=== PATIENT | female | born 1935 | race Caucasian/White ===

== ENCOUNTER 2024-02-02 14:53 | Emergency (ER) | payer MEDICARE, SELFPAY ==
[2024-02-02] VITALS (8 sets, daily range): BP systolic 105–189; BP diastolic 52–80; PULSE 61–82; RESP 16–22; TEMP 36.4–36.7; O2SAT 91–96; BMI 28.9
--- NOTE | ~2024-02-02 | CT_ITS ---
EXAMINATION: CT HEAD WITHOUT CONTRAST CT CERVICAL SPINE WITHOUT CONTRAST CLINICAL INFORMATION: Weakness, fall. COMPARISON: None TECHNIQUE: Contiguous axial imaging was performed from the skull base to vertex without intravenous administration of contrast. Contiguous axial imaging was performed from the upper chest through the skull base without intravenous administration of contrast. Coronal and sagittal reformats were obtained at the acquisition workstation. This CT examination was performed using dose optimization techniques as appropriate, variously including the following: *Automated exposure control *Adjustment of mA and/or kV according to patient size (this includes techniques or standardized protocols for targeted exams where dose is matched to indication/reason for exam; i.e. extremities or head) *Use of iterative reconstruction technique DLP: 667 and 270 mGy-cm FINDINGS: Head: There is no evidence of acute intracranial hemorrhage or edematous territorial infarction. Scattered hypoattenuation in the periventricular and deep white matter are consistent with moderate microangiopathy. Alfaro-white matter differentiation is preserved. Proportional prominence of the ventricles and sulcal spaces. No evidence for obstructive hydrocephalus. No abnormal mass effect or midline shift. No extra-axial fluid collections. Hyperostosis frontalis interna. Subjective increased density of the bony calvarium. No acute soft tissue findings. The mastoid air cells and paranasal sinuses are clear. Cervical Spine: The atlantooccipital and atlantoaxial articulations remain well aligned. Grade 1 anterolisthesis of C2 on C3 and C3 on C4, most likely degenerative in nature. No evidence of acute compression deformity. Prominent multilevel anterior osteophytes. Moderate multilevel intervertebral disc height loss uncovertebral hypertrophy leading to various degrees of neural foraminal encroachment. Evaluation of the central spinal canal is limited in the absence of IV contrast. No prevertebral soft tissue thickening. Asymmetric, enlarged and heterogeneous left lobe of the thyroid gland with a 1 cm hyperattenuating nodule posteriorly. Incidentally noted retropharyngeal left common carotid artery. Remaining cervical soft tissues are normal in appearance. The lung apices demonstrate no abnormalities. CT/CT cervical spine wo IV con IMPRESSION: 1. No acute intracranial pathology. 2. 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 3. No acute cervical spinal fractures or malalignment. 4. Moderate multilevel cervical spondylosis leading to various degrees of neural foraminal encroachment. 5. Subjective increased density of the bony calvarium, correlate with medical history and consider further evaluation with outpatient bone scan. 6. Asymmetric, enlarged and heterogeneous left lobe of the thyroid gland with a 1 cm hyperattenuating nodule. Based on the recommendations of the ACR Incidental Thyroid Findings Committee (JACR 2015 Dec; 12(2):143-50), further evaluation by thyroid ultrasound is recommended for a heterogeneously enlarged thyroid gland in patients that do not have limited life expectancy or significant co-morbidities, unless clinically warranted.
--- NOTE | 2024-02-02 16:10 | ED.GENADULT ---
HPI - General Adult General Chief complaint: General Medical Stated complaint: FEELS FAINT AND SHAKEY X1 WK FROM SNF PER EMS Time Seen by Provider: 02/02/24 14:57 Source: patient and RN notes reviewed Mode of arrival: ambulatory Limitations: no limitations History of Present Illness HPI narrative: This is a 88-year-old female, with a history of Parkinson's, hypertension, hyperlipidemia, and recent diagnosis of pulmonary embolism on Eliquis (diagnosed this past week), presenting to the emergency department with general weakness for the last several months, worsening over this past week. Patient states that he has been seen by [facility] multiple times this past week for the same complaint however she states that ?they have not given me any answers?. I inquired further, she states that she was diagnosed with a pulmonary embolism was started on Eliquis several days ago. She has been taking the prescribed Eliquis and was told to follow-up with her primary care physician outpatient which she has not done. Patient states that she is getting frustrated as she has had increased trouble walking due to weakness. She denies any headache, dizziness, blurred vision, fevers, chills, sore throat, congestion, cough, chest pain. She endorses shortness of breath especially when she is lying down flat, which has been present for many months however worsened over the last week. She also endorses increased swelling in her lower extremities. She reports slight warmness with urination, otherwise denies any dysuria, urinary frequency, urgency. She states that she typically uses a walker. She does admit that she had a fall 2 days ago. She states that she was attempting to get out of her chair and she slid down. She denies hitting her head or loss of consciousness. No other complaints or concerns at this time. complaint: Weakness Onset (ago): month(s) Radiation: non-radiation Pain Consistency: constant Relieving factors: none Exacerbating factors: none Associated symptoms: denies other symptoms Treatments prior to arrival: none Related Data Home Medications Medication Instructions Recorded Confirmed amlodipine 5 mg tablet 5 mg PO DAILY 02/02/24 02/02/24 ascorbic acid (vitamin C) 500 mg 500 mg PO DAILY 02/02/24 02/02/24 tablet carbidopa 25 mg-levodopa 100 mg 2.5 tab PO TID@0900,1400,2230 02/02/24 02/02/24 tablet carbidopa 25 mg-levodopa 100 mg 3 tab PO BID@1200,1800 02/02/24 02/02/24 tablet cholecalciferol (vitamin D3) 25 25 mcg PO DAILY 02/02/24 02/02/24 mcg (1,000 unit) tablet coenzyme Q10 100 mg capsule (Co 200 mg PO BID 02/02/24 02/02/24 Q-10) docusate sodium 100 mg capsule 100 mg PO BID 02/02/24 02/02/24 furosemide 20 mg tablet 20 mg PO DAILY 02/02/24 02/02/24 levothyroxine 75 mcg tablet 75 mcg PO DAILY 02/02/24 02/02/24 lisinopril 30 mg tablet 30 mg PO DAILY 02/02/24 02/02/24 magnesium oxide 400 mg PO DAILY 02/02/24 02/02/24 melatonin 3 mg tablet 6 mg PO BEDTIME 02/02/24 02/02/24 multivitamin 1 tab PO DAILY 02/02/24 02/02/24 trazodone 50 mg tablet 50 mg PO BEDTIME 02/02/24 02/02/24 Allergies Allergy/AdvReac Type Severity Reaction Status Date / Time Unable to Assess Allergy Unverified 02/02/24 16:36 Review of Systems Review of Systems: Yes all other systems are reviewed and are negative Constitutional: Constitutional: Reports as per [facility] Social History Social History Smoked in Last 30 Days: No Advance Directives: Yes Advance Directives Information Provided: Yes Advance Directives on File: No Physical Exam ED Vital Signs: Vital Signs - 24 hr 02/02/24 15:04 02/02/24 15:29 02/02/24 17:48 Temperature 98.1 F 97.8 F 97.9 F Pulse Rate 82 76 73 Respiratory Rate 16 20 22 H Blood Pressure 126/63 105/52 L 157/69 H Pulse Oximetry 94 91 L 96 Oxygen Delivery Method Room Air Room Air Room Air 02/02/24 17:50 02/02/24 17:51 02/02/24 17:54 Temperature Pulse Rate 61 65 72 Respiratory Rate Blood Pressure 149/67 H 144/67 H 158/62 H Pulse Oximetry Oxygen Delivery Method 02/02/24 19:39 02/02/24 23:58 Temperature 97.6 F 97.9 F Pulse Rate 79 67 Respiratory Rate 22 H 17 Blood Pressure 189/80 H 166/72 H Pulse Oximetry 95 93 Oxygen Delivery Method Room Air Room Air BMI result Body Mass Index 28.9 Const General: cooperative, comfortable and no acute distress Orientation/consciousness: patient oriented x3 Limitations: no limitations HENMT Head: Yes normal to inspection, Yes normocephalic and Yes atraumatic Ears: hearing grossly normal bilaterally General nose exam: Normal external nose present Face and sinus: Yes normal facial exam Mouth: Normal oral and palatal mucosa present, oropharynx normal and moist mucous membranes Throat: Yes posterior oropharynx normal Eyes General: appearance normal, both eyes and all related structures Eyelids: Yes eyelids normal Conjunctivae: conjunctivae normal Sclerae: sclerae normal Pupils: Equal, round and reactive pupils present EOM: EOMs intact bilaterally Neck Neck: Yes normal visual inspection, Yes full ROM and Yes no lymphadenopathy Lymphatic: no lymphadenopathy noted Chest Chest palpation & inspection: normal inspection of the chest Resp Effort & Inspection: normal respiratory effort and able to speak in complete sentences Auscultation: clear to auscultation bilaterally, no crackles, no rales, no rhonchi and no wheezes Cardio Rate: regular rate Rhythm: regular rhythm Heart sounds: S1 normal heart sound present and S2 normal heart sound present GI Other: Abdomen is soft and nontender Inspection: Yes normal to inspection Skin General skin exam: no rashes or lesions noted Trauma: no lacerations or abrasions Wounds: no wounds 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 General: patient oriented x3 and moves all extremities Cranial nerves: Yes CN's II-XII intact bilaterally and Yes Equal, round and reactive pupils present Cognition (Neuro): normal cognition Motor exam (neuro): 5/5 motor strength present throughout and Pronator motor function not present Coordination: [id number] test normal Romberg Test: Negative Extrem Other: No lower extremity swelling noted. No pedal edema noted. Strength 5/5 in lower extremities. General: Yes normal to inspection Right upper extremity: normal to inspection Left upper extremity: normal to inspection Right lower extremity: normal to inspection Left lower extremity: normal to inspection Course Reevaluation(s) Reevaluation #1: She has not orthostatic. Patient has no leukocytosis, H&H within normal limits. Chemistry within normal limits. Urine does not appear to be infected. Viral swabs are negative. Patient requesting her levodopa carbidopa. She is agreeable for CT scan of head and neck Time: 19:25 Reevaluation #2: CT scan of the head and neck reveal no acute intracranial pathology, there also no acute cervical spinal fractures or malalignment. There is moderate multilevel cervical spondylosis leading to varus degrees of neural foraminal encroachment. There is an asymmetric enlarged in heterogeneous left lobe of the thyroid gland with a 1 cm hyperattenuating nodule. I discussed these findings with patient. She still refuses to have a chest x-ray. Patient is agreeable to see PT and case management in the morning. Physician observation initiated, pending PT Case Management Time: 23:07 Medications Administered Generic Name Dose Route Start Last Admin Trade Name Freq PRN Reason Stop Dose Admin Apixaban 5 mg 02/02/24 22:55 02/02/24 23:47 Apixaban 5 Mg Tablet PO 5 mg BID JASON Administration Carbidopa/Levodopa 2.5 tab 02/02/24 22:30 02/02/24 22:18 Carbidopa/Levodopa 25/100 Tablet PO 2.5 tab TID@0900,1400,2230 JASON Administration Melatonin 6 mg 02/02/24 22:15 02/02/24 22:18 Melatonin 3 Mg Tablet PO 6 mg BEDTIME JASON Administration Trazodone HCl 50 mg 02/02/24 22:15 02/02/24 22:18 Trazodone Hcl 50 Mg Tablet PO 50 mg BEDTIME JASON Administration Discontinued Medications Generic Name Dose Route Start Last Admin Trade Name Freq PRN Reason Stop Dose Admin Carbidopa/Levodopa 1 tab 02/02/24 19:16 02/02/24 19:41 Carbidopa/Levodopa 25/100 Tablet PO 02/02/24 19:17 1 tab ONCE ONE Administration Medical Decision Making Medical Decision Making [facility] Narrative: This is a 88-year-old female, with a history of Parkinson's, recent diagnosis of pulmonary embolism started on Eliquis several days ago, hypertension, and hyperlipidemia, presenting to the emergency department from the [facility], with complaints of weakness for the last several months, worsening over the last week. She also endorsing shortness of breath upon lying down, warmness sensation with urination, and increased lower extremity swelling. She also had a mechanical fall 2 days ago, denies head strike or LOC. Differential diagnoses include dehydration, electrolyte abnormality, ACS, CVA, ICH, orthostatic hypotension, failure to thrive, UTI, pneumonia. Plan: Will attempt to obtain records from [facility], labs, EKG, CT head/neck. Patient refusing chest x-ray as she ?has had too many over the course of this last week. Patient also refusing CT head and neck. I explained to her that she is currently on a blood thinner and this increases her risk for intracranial process. She has no neurologic focal deficits on examination however given that she is on anticoagulants with 2 mechanical falls this past week, I would like to obtain a CT head and neck to rule out any sort of intracranial process. She is completely neurologically intact and can make her own medical decisions as she is competent in his aware of all the risks associated with not performing these diagnostic images. I explained to her that because she has had multiple chest x-rays as well as CT scans that were normal in the past does not indicate that she will have a normal chest x-ray or CT head and neck today. She understands the risks of intracranial bleeds, including paralysis and . She still adamantly refuses to do these tests. Differential Diagnosis Differential Diagnoses: The differential diagnosis associated with the presentation includes See above Admission/Observation Consideration of admission/observation: Escalation of care including admission/observation considered Escalation of care including admission/observation considered however given workup today not warranted at this time. Lab Data MDM Lab Attestation statement: I reviewed the patient's lab results. A leukocytosis, chemistry without any electrolyte derangements. Negative troponin. BNP 94. Lipase within normal limits, urine does not appear to be infected. Negative flu, RSV, and COVID 02/02/24 17:11 02/02/24 17:11 Labs: Lab Results 02/02/24 Range/Units 17:11 WBC 9.0 (4.8-10.8) X10*3/uL RBC 4.36 (4.20-5.50) X10*6/uL Hgb 13.5 (12.0-16.0) g/dl Hct 40.3 (37.0-47.0) % MCV 92.4 (80.0-98.0) fL MCH 31.0 (27.0-33.0) pg MCHC 33.5 (31.0-35.0) g/dl RDW 14.5 (11.0-16.0) % Plt Count 310 (160-400) X10*3/uL MPV 8.6 L (9.4-12.3) fL Immature Gran % (Auto) 0.2 (0.0-0.4) % Neut % (Auto) 57.5 (45-73) % Lymph % (Auto) 34.1 (20-40) % [place] % (Auto) 6.1 (2-11) % Eos % (Auto) 1.7 (0-4) % Baso % (Auto) 0.4 (0-2) % Lymph # (Auto) 3.1 (1.2-4.9) X10*3/uL [place] # (Auto) 0.6 (0.1-1.2) X10*3/uL Eos # (Auto) 0.2 (0.0-0.4) X10*3/uL Baso # (Auto) 0.0 (0.0-0.2) X10*3/uL Abs Immat Gran (auto) 0.02 (0.00-0.03) X10*3/uL Absolute Neuts (auto) 5.2 (2.0-8.3) x10*3/uL Absolute Nucleated RBC 0.000 (0.0-0.012) X10*3/uL Nucleated RBC % (auto) 0.0 (0.0-0.2) /100WBC PT 12.8 (11.1-13.3) SEC INR 1.1 (0.9-1.1) APTT 24.5 L (26.0-36.8) SEC Sodium 138 (135-145) mmol/L Potassium 4.1 (3.3-5.1) mmol/L Chloride 106 (96-108) mmol/L Carbon Dioxide 26 (22-29) mmol/L Anion Gap 10 L (12-20) BUN 16 (9-16) mg/dL Creatinine 0.60 (0.5-1.4) mg/dL Estim Creat Clear Calc 72.3 Estimated GFR > 60 Random Glucose 105 (60-115) mg/dL Calcium 9.0 (8.4-10.2) mg/dL Magnesium 2.2 (1.6-2.6) mg/dL Total Bilirubin 0.5 (0.0-1.0) mg/dL Direct Bilirubin 0.1 (0.0-0.5) mg/dL AST 10 (5-31) U/L ALT < 5 (0-31) U/L Alkaline Phosphatase 80 (39-117) U/L Troponin I High Sens 3.2 (<3.5-17.0) ng/L B-Natriuretic Peptide 94 (<100) pg/mL Total Protein 6.1 L (6.5-8.0) g/dL Albumin 3.6 (3.5-5.0) g/dL Lipase 13 (8-78) U/L Urine Color Yellow Urine Appearance Cloudy Urine pH 7.5 (5.0-9.0) Ur Specific [place] 1.010 (1.005-1.025) Urine Protein Negative (Neg-Trace) mg/dL Urine Glucose (UA) Negative (Negative) mg/dL Urine Ketones Negative (Negative) mg/dL Urine Blood Negative (Negative) Urine Nitrite Negative (Negative) Ur Leukocyte Esterase Negative (Negative) Influenza Type A (PCR) NEGATIVE (Negative) Influenza Type B (PCR) NEGATIVE (Negative) RSV RNA Qual (PCR) NEGATIVE (Negative) SARS-CoV-2 RNA (RT-PCR) NEGATIVE (Negative) Independent Interpretation I performed an independent interpretation of an: EKG Interpretation: EKG sinus bradycardic at a ventricular rate of 59 beats per minute, NH interval 184. No ST elevation or depression. Radiology Impression Discussion of test interpretation with radiology: I have reviewed the radiologist's reading. Radiologist Impression: EXAMINATION: CT HEAD WITHOUT CONTRAST CT CERVICAL SPINE WITHOUT CONTRAST CLINICAL INFORMATION: Weakness, fall. COMPARISON: None TECHNIQUE: Contiguous axial imaging was performed from the skull base to vertex without intravenous administration of contrast. Contiguous axial imaging was performed from the upper chest through the skull base without intravenous administration of contrast. Coronal and sagittal reformats were obtained at the acquisition workstation. This CT examination was performed using dose optimization techniques as appropriate, variously including the following: *Automated exposure control *Adjustment of mA and/or kV according to patient size (this includes techniques or standardized protocols for targeted exams where dose is matched to indication/reason for exam; i.e. extremities or head) *Use of iterative reconstruction technique DLP: 667 and 270 mGy-cm FINDINGS: Head: There is no evidence of acute intracranial hemorrhage or edematous territorial infarction. Scattered hypoattenuation in the periventricular and deep white matter are consistent with moderate microangiopathy. Alfaro-white matter differentiation is preserved. Proportional prominence of the ventricles and sulcal spaces. No evidence for obstructive hydrocephalus. No abnormal mass effect or midline shift. No extra-axial fluid collections. Hyperostosis frontalis interna. Subjective increased density of the bony calvarium. No acute soft tissue findings. The mastoid air cells and paranasal sinuses are clear. Cervical Spine: The atlantooccipital and atlantoaxial articulations remain well aligned. Grade 1 anterolisthesis of C2 on C3 and C3 on C4, most likely degenerative in nature. No evidence of acute compression deformity. Prominent multilevel anterior osteophytes. Moderate multilevel intervertebral disc height loss uncovertebral hypertrophy leading to various degrees of neural foraminal encroachment. Evaluation of the central spinal canal is limited in the absence of IV contrast. No prevertebral soft tissue thickening. Asymmetric, enlarged and heterogeneous left lobe of the thyroid gland with a 1 cm hyperattenuating nodule posteriorly. Incidentally noted retropharyngeal left common carotid artery. Remaining cervical soft tissues are normal in appearance. The lung apices demonstrate no abnormalities. CT/CT head/brain wo IV con IMPRESSION: 1. No acute intracranial pathology. 2. 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 3. No acute cervical spinal fractures or malalignment. 4. Moderate multilevel cervical spondylosis leading to various degrees of neural foraminal encroachment. 5. Subjective increased density of the bony calvarium, correlate with medical history and consider further evaluation with outpatient bone scan. 6. Asymmetric, enlarged and heterogeneous left lobe of the thyroid gland with a 1 cm hyperattenuating nodule. Based on the recommendations of the ACR Incidental Thyroid Findings Committee (JACR 2015 Dec; 12(2):143-50), further evaluation by thyroid ultrasound is recommended for a heterogeneously enlarged thyroid gland in patients that do not have limited life expectancy or significant co-morbidities, unless clinically warranted. Dictated By: Maya Vidales Discharge Plan Discharge Clinical Impression: Weakness Patient Disposition: Still a Patient Prescriptions: No Action trazodone 50 mg tablet 50 mg PO BEDTIME amlodipine 5 mg tablet 5 mg PO DAILY levothyroxine 75 mcg tablet 75 mcg PO DAILY furosemide 20 mg tablet 20 mg PO DAILY carbidopa-levodopa 25-100 mg tablet 3 tab PO BID@1200,1800 multivitamin Tablet 1 tab PO DAILY melatonin 3 mg Tablet 6 mg PO BEDTIME ascorbic acid (vitamin C) 500 mg Tablet 500 mg PO DAILY docusate sodium 100 mg Capsule 100 mg PO BID carbidopa-levodopa 25-100 mg tablet 2.5 tab PO TID@0900,1400,2230 coenzyme Q10 [Co Q-10] 100 mg Capsule 200 mg PO BID cholecalciferol (vitamin D3) 25 mcg (1,000 unit) Tablet 25 mcg PO DAILY magnesium oxide 400 mg magnesium Tablet 400 mg PO DAILY lisinopril 30 mg tablet 30 mg PO DAILY
--- NOTE | 2024-02-02 16:37 | ECG_ITS ---
Test Reason : WEAKNESS Blood Pressure : / mmHG Vent. Rate : 059 BPM Atrial Rate : 059 BPM P-R Int : 184 ms QRS Dur : 078 ms QT Int : 428 ms P-R-T Axes : 048 003 019 degrees QTc Int : 423 ms Sinus bradycardia Otherwise normal ECG No previous ECGs available Referred By: Irlanda Null Electronically Signed By:VITA MCBRIDE MD
[2024-02-02 17:19] LABS: MANUAL DIFF FLAG NO
[2024-02-02 17:23] LABS: Basophils Percent Auto 0.4 % (0-2); Eosinophils Absolute Auto 0.2 X10*3/uL (0.0-0.4); Eosinophils Percent Auto 1.7 % (0-4); Hematocrit 40.3 % (37.0-47.0); Hemoglobin 13.5 g/dl (12.0-16.0); Imm Gran Abs Auto 0.02 X10*3/uL (0.00-0.03); Imm Gran Pct Auto 0.2 % (0.0-0.4); Lymphocytes Absolute Auto 3.1 X10*3/uL (1.2-4.9); Lymphocytes Percent Auto 34.1 % (20-40); Mean Corpuscular HGB Conc 33.5 g/dl (31.0-35.0); Mean Corpuscular Volume 92.4 fL (80.0-98.0); Mean Platelet Volume 8.6 fL (9.4-12.3); Monocytes Absolute Auto 0.6 X10*3/uL (0.1-1.2); Monocytes Percent Auto 6.1 % (2-11); Neutrophils Absolute Auto 5.2 x10*3/uL (2.0-8.3); Neutrophils Percent Auto 57.5 % (45-73); Platelet Count 310 X10*3/uL (160-400); Red Blood Count 4.36 X10*6/uL (4.20-5.50); Red Cell Distribution Width 14.5 % (11.0-16.0)
[2024-02-02 17:25] LABS: Appearance Urine Cloudy; Color Urine Yellow; Glucose Urine UA Negative (Negative); Leukocyte Esterase Urine Negative (Negative); Nitrite Urine Negative (Negative); PH 7.5 (5.0-9.0); Urine Blood Negative (Negative); Urine Ketones Negative (Negative); Urine Protein Negative (Neg-Trace)
[2024-02-02 17:30] LABS: INTERNATIONAL NORM RATIO 1.1 (0.9-1.1); Prothrombin Time 12.8 SEC (11.1-13.3)
[2024-02-02 17:33] LABS: Partial Thromboplastin Time 24.5 SEC (26.0-36.8)
[2024-02-02 17:42] LABS: Alanine Aminotransferase < 5 U/L (0-31); Albumin Level 3.6 g/dL (3.5-5.0); Alkaline Phosphatase 80 U/L (39-117); Anion Gap 10 (12-20); Aspartate Amino Transferase 10 U/L (5-31); Bilirubin Direct 0.1 mg/dL (0.0-0.5); Bilirubin Total 0.5 mg/dL (0.0-1.0); Blood Urea Nitrogen 16 mg/dL (9-16); Carbon Dioxide 26 mmol/L (22-29); Chloride 106 mmol/L (96-108); Creatinine Clr Calc Pharmacy 72.3; Estimated Glomerular Filt Rate > 60; Glucose Random 105 mg/dL (60-115); Lipase 13 U/L (8-78); Magnesium 2.2 mg/dL (1.6-2.6); Potassium 4.1 mmol/L (3.3-5.1); Sodium 138 mmol/L (135-145); Total Protein 6.1 g/dL (6.5-8.0)
[2024-02-02 17:45] LABS: B Type Natriuretic Peptide 94 pg/mL (<100)
[2024-02-02 17:47] LABS: Troponin-I High Sensitivity 3.2 ng/L (<3.5-17.0)
[2024-02-02 18:00] LABS: Influenza A PCR NEGATIVE (Negative); Influenza B PCR NEGATIVE (Negative); Resp Syncy Virus RNA Qual PCR NEGATIVE (Negative); SARS COV2 PCR INHOUSE NEGATIVE (Negative)
[2024-02-02] MEDS: Carbidopa/Levodopa 25/100 TABLET 1 TAB PO (19:41)
--- NOTE | 2024-02-02 20:01 | PC.NURSE ---
Assumed care of pt at 1900. Pt medicated with carbidope levodopa, per pt request. Pt appears alert and oriented but very anxious. She has been saying she cannot breathe and that she feels funny in her chest. Lung and heart sounds normal, BP elevated but vital signs are WNL otherwise. Provider aware. We are still waiting for information from [facility] where pt was supposedly diagnosed with PE. Pt likely to be PT/CM.
--- NOTE | 2024-02-02 20:03 | MHC.EDTECH ---
Patient used her call avila, this tech went in and introduced herself. Patient was upset she hadn't had her 1800 medication. Ortega castillo informed her that the nurse would be in to help her with that, helped with a boost, gave her a warm blanket assured her that we will be in to check on her shortly.
--- NOTE | 2024-02-02 21:43 | PHA.MEDREC ---
Pharmacy Consult ? Medication Reconciliation Pharmacy has completed the medication reconciliation. Old list was sent from the [facility] that states 07/13-08/13, utilized list and claim history to determine patients med list. Ask [facility] to fax over another medicaiton list to see if it is better updated. Nikki Irby, SaigeD
[2024-02-02] MEDS: traZODone HCL 50 MG TABLET PO (22:18)
[2024-02-02] MEDS: Melatonin 3 MG TABLET 6 MG PO (22:18)
[2024-02-02] MEDS: Carbidopa/Levodopa 25/100 TABLET 2.5 TAB PO (22:18)
[2024-02-02] MEDS: Apixaban 5 MG TABLET PO (23:47)
[2024-02-03] VITALS (9 sets, daily range): BP systolic 102–190; BP diastolic 58–90; PULSE 60–76; RESP 15–17; TEMP 36.7–37.8; O2SAT 92–96
[2024-02-03] MEDS: Levothyroxine Sodium 75 MCG TABLET PO (05:50)
--- NOTE | 2024-02-03 08:19 | PC.NURSE ---
ASSUMED CARE AT 0800. PT ALERT, ORIENTED TO SELF, PLEASANTLY CONFUSED. PT BROUGHT TO OVFLW UNIT VIA STRETCHER. PT INCONTINENT OF URINE, COMPLETE BED CHANGE AND CLOTHING CHANGED. SHE DENIES PAIN, VSS.
[2024-02-03] MEDS: Magnesium Oxide 400 MG TABLET PO (09:57)
[2024-02-03] MEDS: Furosemide 20 MG TABLET PO (09:57)
[2024-02-03] MEDS: lisinopriL 10 MG TABLET 30 MG PO (09:57)
[2024-02-03] MEDS: amLODIPine Besylate 5 MG TABLET PO (09:57)
[2024-02-03] MEDS: Apixaban 5 MG TABLET PO ×2 (09:57→21:56)
[2024-02-03] MEDS: Docusate Sodium 100 MG CAPSULE PO ×2 (09:57→21:57)
[2024-02-03] MEDS: Multivitamin TABLET 1 TAB PO (09:57)
[2024-02-03] MEDS: Cholecalciferol (Vitamin D3) 25 MCG TABLET PO (09:57)
[2024-02-03] MEDS: Ascorbic Acid 500 MG TABLET PO (11:13)
[2024-02-03] MEDS: Carbidopa/Levodopa 25/100 TABLET 3 TAB PO ×2 (11:23→18:36)
--- NOTE | 2024-02-03 14:51 | MHC.CM.ED ---
Received case management consult overnight. Patient came to the ER due to weakness. Work up essentially negative. Physical therapy eval completed. Short term rehab is recommended. Patient has not been inpatient in any facility in the past 30 days. Referral made to all 3 acute rehab facilities. No bed offers at this time. Spoke with patient's son, Merritt, via telephone at [phone]. Patient resides at [facility]. Patient has a history of Parkinson's. She has been going to [facility] ER about every 2 weeks. She gets discharged and returns to [facility]. Merritt does feel patient would benefit from short term rehab and may need to transition to prison care. Merritt is aware patient would need to privately pay. Merritt feels patient could privately pay for 3 months before needing to transition to [facility] for prison care. Merritt aware bed availability has been difficult due to 4 local facilities closing. Merritt agreeable to referral being broadcasted and then discussing facility choices before discussing with patient. Referral broadcasted via [facility]. Continue to monitor for d/c needs. Copy of HCP obtained from [facility]. Continue to monitor for d/c needs.
--- NOTE | 2024-02-03 15:29 | MHC.EDTECH ---
ASSISTED PT OOB TO BEDSIDE COMMODE. PT VERY UNSTEADY ON FEET. ASSISTED BACK TO BED AND NEW PUREWICK PLACED. RN AWARE
[2024-02-03] MEDS: Carbidopa/Levodopa 25/100 TABLET 2.5 TAB PO ×2 (16:19→22:45)
--- NOTE | 2024-02-03 18:06 | MHC.CM.ED ---
Addendum entered by Darlyn Wells 02/03/24 18:21: Pt requests that her wishes be documented. Provider aware. MOLST completed. Pt is a full code. Pt desires dilaysis/ IV and Artificial nutrition if needed. Original copy given to patient, with copies for her family. Uploaded into [employer] and [facility] [employer]. Original Note: Pt is alert and orientated x3. Lives at the [facility]. Tells CM for about a year and a half. States it's okay there. Feels she needs more help in her apartment and with showering. Pt does have 3 meals, light housekeeping and medication management at the [facility]. Pt states she walks to dining room for dinner, and has her other meals in her room. Uses a walker. Has been increasingly weak. Has not fallen until today. HCP on file. HCP/son Merritt Patterson ([phone]) lives locally in [place]. Her daughter, Donna Hernandez lives in [place] ([phone]). 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 States she is working on a novel. Pt is very concerned that her family will not honor her wishes with regard to code status.
[2024-02-03] MEDS: Melatonin 3 MG TABLET 6 MG PO (21:57)
[2024-02-04] MEDS: traZODone HCL 25 MG HALFTAB PO (00:41)
[2024-02-04 06:09] VITALS: BP 193/87; PULSE 66; RESP 16; TEMP 36.3; O2SAT 96
[2024-02-04] MEDS: Levothyroxine Sodium 75 MCG TABLET PO (06:42)
[2024-02-04] MEDS: amLODIPine Besylate 5 MG TABLET PO (06:43)
[2024-02-04] MEDS: Ascorbic Acid 500 MG TABLET PO (08:22)
[2024-02-04] MEDS: Docusate Sodium 100 MG CAPSULE PO ×2 (08:22→21:00)
[2024-02-04] MEDS: Furosemide 20 MG TABLET PO (08:22)
[2024-02-04] MEDS: Multivitamin TABLET 1 TAB PO (08:22)
[2024-02-04] MEDS: Cholecalciferol (Vitamin D3) 25 MCG TABLET PO (08:22)
[2024-02-04] MEDS: lisinopriL 10 MG TABLET 30 MG PO (08:23)
[2024-02-04] MEDS: Apixaban 5 MG TABLET PO ×2 (08:23→21:00)
[2024-02-04] MEDS: Magnesium Oxide 400 MG TABLET PO (08:23)
--- NOTE | 2024-02-04 08:24 | PC.NURSE ---
Pt with elevated BP at shift change in the evening. offgoing RN communicated with PARKING LOT ATTENDANT Sonya Live with plan to review. BP was rechecked at and was 141/71. Pt demonstrates significant anxiety about a variety of things including but not limited to her BP, how she will handle elimination, her advanced directives and if they will be followed. Pt reassured numerous times and was able to be calmed. Pt was able to S+P to commode with 1 heavy assist. She was asking to ambulate but did not demonstrate the strength to do so. Pt allowed to march in place and was demonstrated gluteal squeezes, leg lifts, and foot pumps to try to maintain strength while in bed. Pt slept well overnight and woke very anxious again. all needs attended to with pt calming. Again her BP was elevated with manual 162/72. MD Warner aware and amlodipine ordered to be given early. Plan of care progresisng.
[2024-02-04] MEDS: Carbidopa/Levodopa 25/100 TABLET 2.5 TAB PO ×3 (08:32→21:00)
[2024-02-04] MEDS: Carbidopa/Levodopa 25/100 TABLET 3 TAB PO ×3 (12:17→19:03)
[2024-02-04 12:21] VITALS: BP 159/74; PULSE 73; RESP 16; TEMP 37.1; O2SAT 95
--- NOTE | 2024-02-04 12:22 | MHC.EDTECH ---
Patient given shower and total bed changed
--- NOTE | 2024-02-04 13:55 | MHC.CM.ED ---
Patient remains in ER overflow. The following facilities are able to offer a private pay bed: [facility], [facility] [place], [facility], [facility], [facility], [facility] and [facility]. These options were discussed with patient's son, Merritt. Merritt feels [facility] would be his 1st choice. T/W met with patient. Patient agrees [facility] 1[facility] choice and is aware she needs to privately pay. [facility] made aware and asked to reach out to patient and son. Continue to monitor for d/c needs.
[2024-02-04 14:00] VITALS: BP 119/61; PULSE 72; RESP 18; TEMP 36.9; O2SAT 94
[2024-02-04] MEDS: Melatonin 3 MG TABLET 6 MG PO (20:59)
[2024-02-04] MEDS: traZODone HCL 50 MG TABLET PO (21:00)
--- NOTE | 2024-02-04 21:39 | MHC.EDTECH ---
Patient walked to bathroom with walker
[2024-02-04 21:47] VITALS: BP 162/74; PULSE 62; RESP 24; TEMP 36.6; O2SAT 95
[2024-02-05 02:49] VITALS: BP 139/82; PULSE 67; RESP 16; TEMP 37.1; O2SAT 94
--- NOTE | 2024-02-05 03:04 | MHC.EDTECH ---
patient rang call light to use commode. Patient urinated was cleaned and repositioned multiple times . After this publications writer left patient rang again because she was incontinent of urine. Pt cleaned repositioned and warm blanket given.Patient agreeable to joe at this time.
--- NOTE | 2024-02-05 03:29 | PC.NURSE ---
Addendum entered by Irlanda Truong RN 02/05/24 06:08: Patient has been sleeping soundly despite not taking xyprexa Original Note: Patient had been asking for med to help her sleep, namely trazadone, which she had gotten at 9pm. She is sleepless and restless and connot get comfortable. Very frequently asking for small adjustments to head and feet as well as blankets etc in attempt to get comfortable. MD ordered xyprexa, which the patient currently is refusing stating that she is worried her heart will stop. I reassured and educated patient, however she preferred not to take the medication. She added that she is allergic to horse tranquilizers . I assured her she will not be administered such a thing. She is currently resting in bed with a blue medical flat face mask over her eyes, being used as a sleep mask. Call avila in hand.
[2024-02-05] MEDS: Levothyroxine Sodium 75 MCG TABLET PO (06:41)
[2024-02-05 08:44] VITALS: BP 179/83; PULSE 76; RESP 16; TEMP 36.6; O2SAT 94
[2024-02-05] MEDS: Furosemide 20 MG TABLET PO (08:46)
[2024-02-05] MEDS: Multivitamin TABLET 1 TAB PO (08:46)
[2024-02-05] MEDS: Apixaban 5 MG TABLET PO (08:46)
[2024-02-05] MEDS: amLODIPine Besylate 5 MG TABLET PO (08:46)
[2024-02-05] MEDS: Ascorbic Acid 500 MG TABLET PO (08:46)
[2024-02-05] MEDS: Docusate Sodium 100 MG CAPSULE PO (08:46)
[2024-02-05] MEDS: lisinopriL 10 MG TABLET 30 MG PO (08:47)
[2024-02-05] MEDS: Cholecalciferol (Vitamin D3) 25 MCG TABLET PO (08:47)
[2024-02-05] MEDS: Magnesium Oxide 400 MG TABLET PO (08:47)
[2024-02-05] MEDS: Carbidopa/Levodopa 25/100 TABLET 2.5 TAB PO ×2 (08:58→14:45)
--- NOTE | 2024-02-05 09:35 | MHC.CM.ED ---
Patient remains in ER overflow. Patient's son, Merritt, will not be able to obtain patient's checkbook for her until tomorrow due to the [place]. Shelly from [facility] aware. Patient can transfer to their facility today at 1pm. Lori COHN booked. [facility] with chart. Patient, son MerrittMary Ellen RN and Irlanda CHENEY aware. Continue to monitor for d/c needs.
--- NOTE | 2024-02-05 11:39 | PC.NURSE ---
assumed care of pt at 0700. pt a&o x4, has multiple requests and shouts out constantly for help with things such as fixing her pillow and raising the head of the bed. pt scheduled to leave for [facility] at 1300. pt aware. pt ate breakfast and medicated per mar with AM medications. tolerated well although pt kept stating I feel like I'm choking when pt was not choking. pt back to sleep, rr even/unlabored. call avila within reach. plan of care ongoing.
[2024-02-05] MEDS: Carbidopa/Levodopa 25/100 TABLET 3 TAB PO (13:17)
[2024-02-05 14:00] VITALS: BP 130/70; PULSE 70; RESP 17; TEMP 35.8; O2SAT 94
[2024-02-05 15:50] VITALS: BP 130/70; PULSE 70; RESP 17; TEMP 35.8; O2SAT 94
== END 2024-02-05 15:52 | disposition other institution (70) ==
PROVIDERS: Physician Assistant Medical; Emergency Provider Emergency Medicine; PCP Physician Assistant
DX: R53.1 Weakness (principal); G20.A1 Parkinson's disease without dyskinesia, without mention of fluctuations; R26.2 Difficulty in walking, not elsewhere classified; R00.1 Bradycardia, unspecified; R06.02 Shortness of breath; M54.2 Cervicalgia; R51.9 Headache, unspecified; Z11.52 Encounter for screening for COVID-19; Z20.822 Contact with and (suspected) exposure to COVID-19; Z86.711 Personal history of pulmonary embolism; Z79.01 Long term (current) use of anticoagulants; Z79.899 Other long term (current) drug therapy
CPT/HCPCS: 0241U; 70450; 72125; 80048; 80076; 81003; 83690; 83735; 83880; 84484; 85025; 85610; 85730; 87040; 93005; 97162; 99285

== ENCOUNTER → 2024-02-02 16:37 | Outpatient (BNV) | payer MEDICARE, SELFPAY | PROVIDERS: Emergency Provider Emergency Medicine; PCP Physician Assistant; Visit Provider Internal Medicine Cardiovascular Disease | DX: R00.1 Bradycardia, unspecified (principal) | CPT/HCPCS: 93010 ==